=== PATIENT | male | born 1940 | race Caucasian/White ===

== ENCOUNTER → 2016-11-30 | Outpatient (CLI) | payer MEDICARE, OTHER ==
[~2016-11-30] MED LIST: "\\\"PREP SPRAY\\\"-TIN4 OZ"; ASPIRIN EC81 MG PO; ASPIRIN LO-DOSE81 MG PO; COREG25 MG PO; COUMADIN ** IA5 MG PO; COUMADIN **IA2.5 MG PO; COZAAR50 MG PO; CPAP INH; IRON SUPPLEMEN325 MG PO; LEVOTHYROXINE112 MCG PO; LOSARTAN-HCTZ1 EACH PO; METOCLOPRAMIDE10 MG PO; MULTI VITAMIN1 EACH PO; NORCO 5-325 MG1 TAB PO; NORCO 5-325 TA1 EACH PO; NORVASC2.5 MG PO; OXYGEN M-15 INH; PLAVIX75 MG PO; PRAVACHOL40 MG PO; PRILOSEC20 MG PO; PRILOSEC40 MG PO; PROAIR HFA8.5 GM INH; SPIRIVA HANDIHA1 KIT INH; STIOLTO RESPIMAT4 GM INH; TESSALON PERLE100 MG PO; THERAGRAN-M1 TAB PO
== END | disposition disaster alternative care site (69) ==
LOC: GRAD 10:47
DX: N64.4 Mastodynia (principal); N63 Unspecified lump in breast

== ENCOUNTER → 2017-03-11 | Outpatient (CLI) | payer MEDICARE, OTHER | LOC: LNHI 18:20 | DX: I42.8 Other cardiomyopathies (principal); I10 Essential (primary) hypertension; I48.91 Unspecified atrial fibrillation ==